=== PATIENT | male | born 1965 | race African-American/Black ===

== ENCOUNTER 2018-09-10 07:07 | Outpatient (CLI) | payer OTHER, BC ==
--- NOTE | 2018-09-10 07:50 | ULT ---
VENOUS DUPLEX SONOGRAM LEFT LOWER EXTREMITY: HISTORY: Deep venous thrombus. FINDINGS: There is incomplete compressibility of the distal portion of the femoral vein and the popliteal vein. Some flow remains. Echogenicity of the clot is consistent with an old thrombus. Good color and spectral Doppler flow within the common femoral vein and greater saphenous junction, t he deep femoral vein and proximal portion of the femoral vein and the posterior tibial vein. IMPRESSION: Residual clot in the distal femoral vein and popliteal vein of the left leg. POS: ALISTAIR
== END 2018-09-10 07:08 | disposition home or self-care (01) ==
LOC: SCSULT 07:07
PROVIDERS: ATTEND Family Medicine
DX: I82.402 Acute embolism and thrombosis of unspecified deep veins of left lower extremity (principal); I82.412 Acute embolism and thrombosis of left femoral vein; I82.432 Acute embolism and thrombosis of left popliteal vein

== ENCOUNTER 2024-03-26 09:58 | Outpatient (CLI) | payer OTHER | END 2024-03-26 09:59 | disposition home or self-care (01) | LOC: RAD 09:58 | PROVIDERS: ATTEND Internal Medicine | DX: R06.00 Dyspnea, unspecified (principal) | CPT/HCPCS: 71046 ==